=== PATIENT | male | born 1960 | race Two or more races ===

== ENCOUNTER 2022-06-30 14:23 | Emergency (ER) | payer OTHER ==
[~2022-06-30] VITALS: Ht 175.3 cm; Wt 89.4 kg
[~2022-06-30 14:23] MED LIST: ANTI DEPRESSENT; ASA81 MG; COZAAR50 MG; COZAAR50 MG PO; CRESTOR10 MG; FLEXERIL10 MG; XANAX1 MG
[2022-06-30] MEDS ORDERED: CARAFATE1 GM PO (20:57)
[2022-06-30] MEDS ORDERED: PEPCID AC20 MG PO (20:57)
== END 2022-06-30 21:50 | disposition home or self-care (01) ==
LOC: ER 14:23
DX: K29.70 Gastritis, unspecified, without bleeding (principal); K57.90 Diverticulosis of intestine, part unspecified, without perforation or abscess without bleeding; E11.9 Type 2 diabetes mellitus without complications; I10 Essential (primary) hypertension

== ENCOUNTER 2022-09-26 16:20 | Emergency (ER) | payer OTHER ==
[~2022-09-26] VITALS: Ht 182.9 cm; Wt 95.7 kg
[~2022-09-26 16:20] MED LIST changes: +CARAFATE1 GM PO; +PEPCID AC20 MG PO
[2022-09-26] MEDS ORDERED: TRAZODONE HCL150 MG PO (16:36)
== END 2022-09-26 19:52 | disposition home or self-care (01) ==
LOC: ER 16:20
DX: K29.70 Gastritis, unspecified, without bleeding (principal)